=== PATIENT | male | born 1940 ===

== ENCOUNTER 2017-01-17 08:01 | Day surgery (SDC) | payer MEDICARE ==
[~2017-01-17] VITALS: Ht 182.9 cm; Wt 94.0 kg
[~2017-01-17 08:01] MED LIST: ACETAMINOPHEN 500 MG TAB (TYLENOL) PO PRN; CHONDROITIN/HYALURONATE (DISCOVISC) 1 ML SYR IO ONE; PHENYLEPHRINE/KETOROLAC 4 ML VIAL IO ONE; SODIUM CHLORIDE FLUSH 3 ML SYR IV PRN; TETRACAINE 0.5% OPHTHALMIC SOLUTION 4 ML BTL ONE; diphenhydrAMINE 50 MG/ML INJ (BENADRYL) IV PRN
[2017-01-17 08:18] VITALS: BP 130/51
[2017-01-17] MEDS: CATARACT PRE-OP EYE DROPS 0.5ML SYRINGE OD SCH ×4 (08:30→09:04)
[2017-01-17] MEDS: LIDOCAINE 3.5% OPHTH GEL (AKTEN) 1 ML BTL OD SCH ×4 (08:30→09:04)
[2017-01-17] MEDS: HOME MEDICATION OD SCH ×4 (08:30→09:04)
[2017-01-17] MEDS ORDERED: MIDAZOLAM 2 MG/2 ML (VERSED) VIAL ONE (09:21)
[2017-01-17 10:09] VITALS: BP 124/68
== END 2017-01-17 10:36 | disposition home or self-care (01) ==
LOC: ASC 08:01
PROVIDERS: ATTEND Ophthalmology
DX: H25.11 Age-related nuclear cataract, right eye (principal); I10 Essential (primary) hypertension; E11.9 Type 2 diabetes mellitus without complications; E03.9 Hypothyroidism, unspecified; J45.909 Unspecified asthma, uncomplicated; K74.60 Unspecified cirrhosis of liver; Z79.82 Long term (current) use of aspirin
CPT/HCPCS: 36415; 66984; 84132; A9270; C9447; J2250; V2632

== ENCOUNTER 2017-01-31 07:03 | Day surgery (SDC) | payer MEDICARE ==
[~2017-01-31] VITALS: Ht 182.9 cm; Wt 95.0 kg
[~2017-01-31 07:03] MED LIST changes: +BSS OPHTHALMIC IRRIGATION SOLUTION 15 ML BTL ONE; +EPINEPHrine 1MG/ML (1:1000) 1 ML AMPUL (ADRENALIN) ONE; +LACTATED RINGERS 1,000 ML IV SCH; +LIDOCAINE PF 1% (XYLOCAINE) 30 ML VIAL INJ ONE; +POVIDONE-IODINE 5% OPHTHALMIC SOLUTION (BETADINE PREP) 30 ML BTL ONE; +VANCOMYCIN 500 MG VIAL ONE
[2017-01-31 07:21] VITALS: BP 131/59
[2017-01-31] MEDS: LIDOCAINE 3.5% OPHTH GEL (AKTEN) 1 ML BTL OS SCH ×4 (07:38→08:12)
[2017-01-31] MEDS: CATARACT PRE-OP EYE DROPS 0.5ML SYRINGE OS SCH ×3 (07:51→08:12)
[2017-01-31] MEDS: HOME MEDICATION OS SCH ×3 (07:51→08:12)
[2017-01-31] MEDS ORDERED: NALBUPHINE 10 MG/ML (NUBAIN) 1 ML AMP ONE (08:26)
[2017-01-31] MEDS ORDERED: MIDAZOLAM 2 MG/2 ML (VERSED) VIAL ONE ×2 (08:27→08:50)
[2017-01-31] MEDS ORDERED: BSS OPHTHALMIC IRRIGATION SOLUTION 15 ML BTL ONE (08:39)
[2017-01-31 09:11] VITALS: BP 135/61
== END 2017-01-31 09:39 | disposition home or self-care (01) ==
LOC: ASC 07:03
PROVIDERS: ATTEND Ophthalmology
DX: H25.12 Age-related nuclear cataract, left eye (principal); E11.9 Type 2 diabetes mellitus without complications; E03.9 Hypothyroidism, unspecified; I10 Essential (primary) hypertension; J45.909 Unspecified asthma, uncomplicated; K74.60 Unspecified cirrhosis of liver
CPT/HCPCS: 66984; A9270; C9447; J0171; J2001; J2250; J2300; J3370; V2632

== ENCOUNTER → 2017-04-17 | Outpatient (CLI) | payer MEDICARE ==
[~2017-04-17] MED LIST changes: -ACETAMINOPHEN 500 MG TAB (TYLENOL) PO PRN; +ALB0.5V INH; +ASPI81TA55 PO; -BSS OPHTHALMIC IRRIGATION SOLUTION 15 ML BTL ONE; -CHONDROITIN/HYALURONATE (DISCOVISC) 1 ML SYR IO ONE; +DOCU100C8 PO; -EPINEPHrine 1MG/ML (1:1000) 1 ML AMPUL (ADRENALIN) ONE; +FURO-124 PO; +GLYB5TAB6 PO; -LACTATED RINGERS 1,000 ML IV SCH; +LEVO50TA PO; -LIDOCAINE PF 1% (XYLOCAINE) 30 ML VIAL INJ ONE; +MNTL10T PO; +MOME0.132 INH; -PHENYLEPHRINE/KETOROLAC 4 ML VIAL IO ONE; -POVIDONE-IODINE 5% OPHTHALMIC SOLUTION (BETADINE PREP) 30 ML BTL ONE; -SODIUM CHLORIDE FLUSH 3 ML SYR IV PRN; +SPIR100T2 PO; -TETRACAINE 0.5% OPHTHALMIC SOLUTION 4 ML BTL ONE; +TRM50T PO; -VANCOMYCIN 500 MG VIAL ONE; +ZLP5T PO; -diphenhydrAMINE 50 MG/ML INJ (BENADRYL) IV PRN
== END ==
LOC: EMS 16:03
PROVIDERS: ATTEND Family Medicine
DX: R53.1 Weakness (principal); R29.6 Repeated falls